=== PATIENT | female | born 1975 ===

== ENCOUNTER 2016-09-14 14:24 | Inpatient (IN) | payer OTHER ==
[2016-09-14] MEDS ORDERED: LABETALOL SYRINGE 5 MG/ML IVP ONE (15:01)
[2016-09-14 15:24] LABS: Basophils % (A) 0 %; CH 22.7; CHCM 33.6; Eosinophils # (A) 0.1 k/uL (0-0.7); Eosinophils % (A) 1 %; HCT 38.2 % (34.0-46.0); HDW 3.32; HGB 12.7 gm/dL (11.4-16.0); Luc # (Auto) 0.19; Luc % (Auto) 1; Lymphocytes # (A) 1.7 k/uL (1.0-4.8); Lymphocytes % (A) 13 %; MCH 22.5 pg (25.0-35.0); MCHC 33.1 g/dL (31.0-37.0); MCV 68.1 fL (80.0-100.0); Microcytosis Marked; Monocytes # (A) 0.7 k/uL (0-1.0); Monocytes % (A) 5 %; Neutrophils # (A) 10.2 k/uL (1.3-7.7); Neutrophils % (A) 79 %; RBC 5.61 m/uL (3.80-5.40); RDW 15.3 % (11.5-15.5); WBC 12.8 k/uL (3.8-10.6); WBC (Perox) 12.12
[2016-09-14] MEDS ORDERED: CITRIC ACID-SODIUM CITRATE 15 ML CUP PO ONE (15:32)
[2016-09-14] MEDS ORDERED: LACTATED RINGERS 1,000 ML IV ONE (15:32)
[2016-09-14 15:34] LABS: INR 0.9 (<1.1); Prothrombin Time 9.4 sec (9.0-12.0)
[2016-09-14] MEDS ORDERED: LACTATED RINGERS 1,000 ML IV SCH (15:45)
[2016-09-14] MEDS ORDERED: ceFAZolin 2 GM in SODIUM CHLORIDE 0.9% 100 ML IVPB STA (15:45)
[2016-09-14 16:03] LABS: Appearance,Urine Clear (Clear); Bilirubin,Urine Negative (Negative); Glucose,Urine (UA) Negative (Negative); Ketones,Urine Negative (Negative); Leukocyte Esterase,Urine Negative (Negative); Nitrite,Urine Negative (Negative); Protein,Urine Negative (Negative); Specific Gravity,Urine 1.002 (1.001-1.035); UA Billing (MACRO vs. MICRO) CHEM; Urobilinogen,Urine <2.0 mg/dL (<2.0)
[2016-09-14] MEDS ORDERED: KETOROLAC 30 MG/ML 1 ML VIAL ONE (16:10)
[2016-09-14] MEDS ORDERED: ceFAZolin 1,000 MG VIAL ONE (16:10)
[2016-09-14] MEDS ORDERED: NALBUPHINE 10 MG/ML AMPUL ONE (16:10)
[2016-09-14] MEDS ORDERED: LABETALOL 5 MG/ML VIAL MDV ONE (16:10)
[2016-09-14] MEDS ORDERED: MORPHINE SULFATE (PF) 0.3 MG/0.3 ML SYR ONE (16:10)
[2016-09-14 16:17] LABS: Partial Thromboplastin Time 23.1 sec (22.0-30.0)
[2016-09-14 16:43] LABS: ALT 28 U/L (9-52); AST 24 U/L (14-36); Blood Urea Nitrogen 8 mg/dL (7-17); Non-African American GFR(MDRD) >60 (>60 ml/min/1.73 sqM); Uric Acid 5.3 mg/dL (3.7-7.4)
[2016-09-14] MEDS ORDERED: diphenhydrAMINE 50 MG CAP PO PRN (16:53)
[2016-09-14] MEDS ORDERED: Acetaminophen-Codeine 300-30mg TAB PO PRN ×2 (16:53)
[2016-09-14] MEDS ORDERED: ZOLPIDEM 5 MG TAB PO PRN (16:53)
[2016-09-14] MEDS ORDERED: KETOROLAC 30 MG/ML 1 ML VIAL IVP PRN (16:53)
[2016-09-14] MEDS ORDERED: NALOXONE 0.4 MG/ML 1 ML VIAL IV PRN (16:53)
[2016-09-14] MEDS ORDERED: METOCLOPRAMIDE 5 MG/ML 2 ML VIAL IVP PRN (16:53)
[2016-09-14] MEDS ORDERED: diphenhydrAMINE 50 MG/ML 1 ML VIAL IVP PRN ×2 (16:53)
[2016-09-14] MEDS ORDERED: MEASLES-MUMPS-RUBELLA VACC/PF 12,500 UNIT/0.5 ML VIAL SQ ONE (16:53)
[2016-09-14] MEDS ORDERED: ACETAMINOPHEN TAB 325 MG TAB PO PRN (16:53)
[2016-09-14] MEDS ORDERED: ONDANSETRON 4 MG/2 ML VIAL IVP PRN (16:53)
[2016-09-14] MEDS ORDERED: diphenhydrAMINE 25 MG CAP PO PRN (16:53)
--- NOTE | 2016-09-14 16:59 | P.HPOB ---
History of Present Illness H&P Date: 09/14/16 Chief Complaint: Intrauterine at 38 weeks with grossly elevated blood pressures Patient is a 41-year-old who has recently moved to the [facility] from the [facility]. She is not seen her physician or any physician since about July. She reports at that time she had elevated blood pressure in their office and was started on Aldomet. She has not been taking the medication however. On presentation to labor and delivery her blood pressure was 180/108 and continued to be significant elevated despite giving labetalol. She is no signs or symptoms of preeclampsia however. No epigastric pain no headache no visual changes and her deep tendon reflexes are 2 out of 4. Platelets were normal other labs are still pending. If any labs appear elevated we will plan to initiate mag sulfate therapy for 24 hours for preeclampsia. However at this time without any signs or symptoms of preeclampsia I suspect this is just a very severe case of gestational hypertension. However due to the severity of the hypertension and the fact that it only minimally adjusted with labetalol a decision to move forward with a primary section has been made as her cervix is not favorable. Risks/benefits/alternatives were discussed with patient in her family in detail and all questions were answered for her pertinent prior to moving to the operating room. Past medical history is otherwise unremarkable. Past surgical history none. ALLERGIES none. Social history none. Family history none. On physical exam vital signs show grossly elevated blood pressures despite labetalol treatment. No fever chills nausea or vomiting however she is non- tachycardic. Heart is regular, lungs are clear, extremities are without pain. She does have a gravid uterus and heart tones are noted to be in the 130s to 140s and have been reactive. Assessment intrauterine at 38 weeks per patient with gestational hypertension versus preeclampsia which would be severe based on her blood pressure. Plan primary low transverse section with treatment of blood pressures following procedure and possible medical consult depending on how her blood pressures responded. Past Medical History History of Any Multi-Drug Resistant Organisms: None Reported Smoking Status: Never smoker Medications and Allergies Home Medications Medication Instructions Recorded Confirmed Type Methyldopa [Aldomet] 09/14/16 History Jui-Hcvp-Uprsv Acid 09/14/16 History [-U Capsule] Allergies Allergy/AdvReac Type Severity Reaction Status Date / Time No Known Allergies Allergy Verified 09/14/16 14:38 Exam Osteopathic Statement: *. No significant issues noted on an osteopathic structural exam other than those noted in the History and Physical/Consult. - Vital Signs Vital signs: Intake and Output 09/14/16 09/14/16 09/14/16 06:59 14:59 22:59 Other: Weight 55.338 kg Patient Weight 09/15/16 06:59 Weight 55.338 kg Results Result Diagrams: 09/14/16 15:10 09/14/16 15:10 Abnormal Lab Results - Last 24 Hours (Table) 09/14/16 09/14/16 Range/Units 15:10 15:10 WBC 12.8 H (3.8-10.6) k/uL RBC 5.61 H (3.80-5.40) m/uL MCV 68.1 L (80.0-100.0) fL MCH 22.5 L (25.0-35.0) pg Neutrophils # 10.2 H (1.3-7.7) k/uL Creatinine 0.50 L (0.52-1.04) mg/dL
--- NOTE | 2016-09-14 17:02 | P.OP ---
Date of Procedure: 09/14/16 Preoperative Diagnosis: Intrauterine at 38 weeks with severe preeclampsia versus severe gestational hypertension Postoperative Diagnosis: Same Procedure(s) Performed: Primary low transverse section from Pfannenstiel Anesthesia: spinal Surgeon: Marlon Raza Burrito Maker #1: Eulalia Benoit Estimated Blood Loss (ml): 600 IV fluids (ml): 1,000 Urine output (ml): 600 Pathology: other (Placenta) Condition: stable Disposition: floor Operative Findings: Female 's of 8 and 9 at one and 5 minutes Mauk weight was 5 lbs. 10 oz. and there was a nuchal cord 2. Description of Procedure: Patient was taken to the operating suite where a spinal anesthetic was found be adequate. She was prepped and draped in the normal sterile fashion placed in dorsal supine position with leftward tilt. Initially a Pfannenstiel skin incision was made. This incision was then carried through to underlying layer of the fashion with second knife. Fascia was then nicked in the midline and this opening was extended laterally with Rapp scissors. Superior and inferior aspect of this incision were then grasped tented up and bluntly and sharply dissected off the rectus muscles. Rectus muscles were then divided in the midline and sharp dissection through the peritoneum was made. This opening was then extended superiorly and inferiorly with good visualization of both bowel and bladder. Bladder blade was then placed vesicouterine peritoneum identified and grasped pickups. This tissue was then entered sharply with Metzenbaum scissors and this opening was extended across face of the uterus with Metzenbaum scissors. Knife was then used to incise uterus this opening was then fully entered bluntly with a hemostat and then extended bluntly. Head was then H medically delivered and nuchal cord 2 was easily reduced. Mouth nares were then bulb suctioned and anterior and posterior shoulders were easily delivered followed by the remainder the baby. Umbilical cord was then clamped cut usual fashion an nursery personnel was present to assume care. Placenta was then delivered intact and Pitocin was added to the IV. Uterus was then exteriorized cleared of clots and debris and closed in 2 layers with 0 Vicryl suture. Once excellent hemostasis was obtained 3-0 Vicryl used to reapproximate the bladder flap. Blood and debris was then suctioned posterior cul-de-sac and the uterus was reinserted into the abdomen. Peritoneal layer was then closed with 0 Vicryl suture fascial layer was closed with 0 Vicryl suture one layer of 3-0 Vicryl was placed in the deep subcuticular tissues and the skin was then closed with 3-0 Vicryl on a Reese needle. Patient tolerated the procedure very well and sponge, lap, needle counts were all correct 2.
[2016-09-14] MEDS: OXYTOCIN 30 UNITS/500 ML NS 30 UNIT in SALINE 1 500ML.BAG IV SCH ×2 (17:40→20:50)
[2016-09-14 18:43] VITALS: BMI 22.6
[2016-09-14 19:56] LABS: Glucose,Whole Blood 81 mg/dL (75-99)
[2016-09-14] MEDS: ACETAMINOPHEN IV (For NPO) 1,000 MG in EMPTY BAG 1 BAG IVPB STA ×2 (20:18→20:27)
[2016-09-14] MEDS: LACTATED RINGERS 1,000 ML IV SCH (20:44)
[2016-09-14] MEDS: SENNOSIDES-DOCUSATE SODIUM 1 EACH TAB PO SCH (21:28)
[2016-09-14] MEDS: LABETALOL 100 MG TAB PO SCH (23:51)
[2016-09-15] MEDS: OXYTOCIN 30 UNITS/500 ML NS 30 UNIT in SALINE 1 500ML.BAG IV SCH ×2 (01:30→20:48)
[2016-09-15] MEDS: LACTATED RINGERS 1,000 ML IV SCH ×2 (01:30→20:48)
[2016-09-15] MEDS ORDERED: ACETAMINOPHEN IV (For NPO) 1,000 MG in EMPTY BAG 1 BAG IVPB PRN (03:00)
[2016-09-15 05:54] LABS: Basophils % (A) 0 %; CH 22.2; CHCM 32.7; Eosinophils # (A) 0.1 k/uL (0-0.7); Eosinophils % (A) 1 %; HCT 31.9 % (34.0-46.0); HDW 3.15; HGB 10.4 gm/dL (11.4-16.0); Luc # (Auto) 0.17; Luc % (Auto) 1; Lymphocytes # (A) 1.2 k/uL (1.0-4.8); Lymphocytes % (A) 8 %; MCH 22.2 pg (25.0-35.0); MCHC 32.5 g/dL (31.0-37.0); MCV 68.4 fL (80.0-100.0); Mean Platelet Volume 7.5; Microcytosis Marked; Monocytes % (A) 7 %; Neutrophils # (A) 11.9 k/uL (1.3-7.7); Neutrophils % (A) 83 %; RBC 4.67 m/uL (3.80-5.40); RDW 15.3 % (11.5-15.5); WBC 14.3 k/uL (3.8-10.6); WBC (Perox) 14.94
[2016-09-15 07:23] LABS: Hepatitis B Surface Antibody Negative (Negative)
[2016-09-15] MEDS: LABETALOL 100 MG TAB PO SCH ×2 (08:41→21:18)
[2016-09-15] MEDS: SENNOSIDES-DOCUSATE SODIUM 1 EACH TAB PO SCH ×2 (08:41→21:18)
--- NOTE | 2016-09-15 09:05 | P.PN ---
Progress Note - Text 0700 Anesthesia POD 1. Patient is status post section under spinal anesthesia with intra-thecal preservative free morphine [300 g]. Minimal pruritus, good post-op analgesia, and no headache or other complication.
--- NOTE | 2016-09-15 09:25 | P.PNOBGPC ---
Subjective - Subjective Principal diagnosis: Postop day 1 Interval history: Overall patient is doing very well. She reports that the swelling and shakiness have almost completely dissipated from last night. Her vital signs are stable and she is afebrile. She is able to ambulate she is voiding and she is tolerating her diet. At this time she voices no complaints. Plan will be to continue current care. Patient reports: Reports appetite normal, Reports voiding normally, Reports pain well controlled, Reports ambulating normally : doing well Objective - Vital Signs Latest vital signs: Vital Signs Temp Pulse Resp BP Pulse Ox 09/15/16 08:00 98.3 F 95 16 139/92 09/15/16 06:31 98.9 F 111 H 16 141/83 97 09/15/16 03:55 145/94 09/15/16 03:50 99.4 F 108 H 14 154/105 98 09/15/16 00:00 98.4 F 104 H 16 138/95 97 09/14/16 22:50 98.9 F 118 H 18 153/95 97 09/14/16 21:15 98.4 F 116 H 97 09/14/16 20:20 99.1 F 122 H 96 09/14/16 19:35 99.6 F 125 H 18 145/75 96 09/14/16 18:57 99.0 F 122 H 20 136/83 97 09/14/16 18:27 118 H 20 134/72 97 09/14/16 17:56 122 H 18 140/72 97 09/14/16 17:40 118 H 20 132/68 98 09/14/16 17:27 122 H 16 131/74 98 09/14/16 17:12 125 H 16 141/76 98 09/14/16 16:57 98.2 F 116 H 18 130/67 98 Intake and Output 09/14/16 09/15/16 09/15/16 22:59 06:59 14:59 Intake Total 1425 500 Output Total 2700 1100 Balance -1275 -600 Intake: IV 1425 500 ACETAMINOPHEN IV (For NPO 100 100 ) 1,000 mg In Empty Bag 1 bag @ 400 mls/hr IVPB ONCE STA Rx#:[id number] Lactated Ringers 1,000 ml 400 @ 125 mls/hr IV .Q8H RYLIE Rx#:[id number] Oxytocin 30 Units/500 ml 325 Ns 30 unit In Saline 1 500ml.bag @ 120 mls/hr IV .Q4H10M [facility] Rx#: [id number] Output: Urine 2100 1100 Uretheral (Chacko) 600 Emesis 0 Estimated Blood Loss 600 Other: Voiding Method Indwelling Catheter # Bowel Movements 0 # Emeses 0 Weight 54.431 kg - Exam Lungs: bilateral: normal Chest: Normal S1, Normal S2 Extremities: Present: normal Abdomen: Present: normal appearance, soft. Absent: distention, tenderness Incision: Present: normal, dry, intact Uterus: Present: normal, firm - Labs Labs: Abnormal Lab Results - Last 24 Hours (Table) 09/14/16 09/14/16 09/15/16 Range/Units 15:10 15:10 05:31 WBC 12.8 H 14.3 H (3.8-10.6) k/uL RBC 5.61 H (3.80-5.40) m/uL Hgb 10.4 L (11.4-16.0) gm/dL Hct 31.9 L (34.0-46.0) % MCV 68.1 L 68.4 L (80.0-100.0) fL MCH 22.5 L 22.2 L (25.0-35.0) pg Neutrophils # 10.2 H 11.9 H (1.3-7.7) k/uL Creatinine 0.50 L (0.52-1.04) mg/dL
[2016-09-15] MEDS: IBUPROFEN 600 MG TAB PO PRN ×2 (15:19→23:31)
--- NOTE | 2016-09-15 19:01 | CONS ---
DATE OF CONSULTATION: REASON FOR CONSULTATION: -induced hypertension. Patient is a 41-year-old 1, status post section. Medicine was consulted because of highly elevated blood pressure. Patient was also tachycardic without any signs or symptoms of preeclampsia. Patient was started on oral labetalol 100 twice a day, with significantly improved blood pressure. Patient's blood pressure almost normalized. Patient was started on methyldopa during the month of June which is consistent transient hypertension ( ). Patient probably has gestational hypertension; does have family history of hypertension. Patient denied any headache, visual changes. Platelet count is essentially within normal limits. There are no signs or symptoms or ( ). Patient does not have any proteinuria or any elevated liver enzymes. REVIEW OF SYSTEMS: CONSTITUTIONAL: No fever, no malaise, no fatigue. HEENT: No recent visual problems or hearing problems. Denied any sore throat. CARDIOVASCULAR: No chest pain, orthopnea, PND, no palpitations, no syncope. PULMONARY: No shortness of breath, no cough, no hemoptysis. GASTROINTESTINAL: No diarrhea, no nausea, no vomiting, no abdominal pain. Normoactive bowel sounds. NEUROLOGICAL: No headaches, no weakness, no numbness. HEMATOLOGICAL: Denies any bleeding or petechiae. GENITOURINARY: Denies any burning micturition, frequency, or urgency. MUSCULOSKELETAL/RHEUMATOLOGICAL: Denies any joint pain, swelling, or any muscle pain. ENDOCRINE: Denies any polyuria or polydipsia. The rest of the 14 point review of systems is negative. PAST MEDICAL HISTORY: None. PAST SURGICAL HISTORY: None. SOCIAL HISTORY: Denied any smoking, alcohol abuse or any drug use. FAMILY HISTORY: Significant for hypertension. Home medications include methyldopa and vitamins. ALLERGIES: NO KNOWN DRUG ALLERGIES. PHYSICAL EXAMINATION: VITAL SIGNS: Temperature afebrile, pulse of 98 now, respiratory rate of 16, blood pressure 139/80. Saturating at 98% on room air. GENERAL: The patient is alert and oriented x3, not in any acute distress. Well developed, well nourished. HEENT: Pupils are round and equally reacting to light. EOMI. No scleral icterus. No conjunctival pallor. Normocephalic, atraumatic. No pharyngeal erythema. No thyromegaly. CARDIOVASCULAR: S1 and S2 present. No murmurs, rubs, or gallops. PULMONARY: Chest is clear to auscultation, no wheezing or crackles. ABDOMEN: Patient is status post section. Bowel sounds are present. MUSCULOSKELETAL: No joint swelling or deformity. EXTREMITIES: No cyanosis, clubbing, or pedal edema. NEUROLOGICAL: Gross neurological examination did not reveal any focal deficits. SKIN: No rashes. LABORATORY DATA: Patient does have minimal leukocytosis. Apart from that, liver enzymes are essentially normal limits. Patient does not have any proteinuria. Kidney function and liver function are essentially within normal limits. Normal platelet count. ASSESSMENT AND PLAN: 1. Elevated blood pressures and hypertension. The patient appears to have gestational hypertension or transient hypertension of which is expected to come down within 12 weeks. Recommend to continue with Labetalol at home and patient was counselled raiding measuring her blood pressure at home and if the patient becomes lightheaded or her blood pressure starts dropping down we may need to taper down her labetalol at that time and patient was asked to call either primary care physician or Dr. Raza at that time. Patient does not have any signs or symptoms of eclampsia at this point of time. Patient was recommended to have her primary care physician . 2. Status post section. Further management as per primary service. Patient is okay to discharge if she is ready to be discharged from [facility] on 100 b.i.d. of Labetalol. The patient was mildly tachycardic which at this point of time, improved with Labetalol itself. Thank you for letting me participate in this patient's care. UZAIR
[2016-09-16] MEDS: IBUPROFEN 600 MG TAB PO PRN ×2 (06:09→12:32)
--- NOTE | 2016-09-16 08:08 | P.DS ---
Providers Date of admission: 09/14/16 15:34 Expected date of discharge: 09/16/16 Attending physician: Marlon Raza Consults: 09/14/16 22:59 Consult Physician Routine Consulting Provider: Lyudmila Henderson Consult Reason/Comments: hypertension Do you want consulting provider notified?: Yes Primary care physician: Marlon Raza Hospital Course: Patient is doing very well postop day 2. She is requesting discharge home. Her vital signs are stable and she is afebrile. Blood pressure seems to be better on labetalol. We'll discharge her on labetalol 100 mg twice a day. She' ll follow up with me in 1 week for blood pressure check and incision check. All the questions are answered for her at this time. She is able to ambulate, void and she is tolerating her diet. At this time she voices no complaints. On physical exam vital signs again are stable. Her heart is regular, lungs are clear, abdomen is soft firm lochia is reported to be light and her incision is clean dry and intact. Assessment postop day 2. Plan discharged home follow up with me in 1 week. She is aware to return for any signs or symptoms of other blood pressures heavy bleeding or severe pain. Discharge instructions thoroughly reviewed and she provided. Patient Condition at Discharge: Good Plan - Discharge Summary New Discharge Prescriptions: Acetaminophen-Codeine 300-30mg [Tylenol #3] 1 tab PO Q4H PRN #30 tablet PRN Reason: Pain Ibuprofen [Motrin] 600 mg PO Q6HR PRN #30 tab PRN Reason: Pain Labetalol [Trandate] 100 mg PO BID #60 tablet Discharge Medication List Methyldopa [Aldomet] 09/14/16 [History] Ddz-Rtvv-Wzgxz Acid [-U Capsule] 09/14/16 [History] Acetaminophen-Codeine 300-30mg [Tylenol #3] 1 tab PO Q4H PRN #30 tablet [Rx] Ibuprofen [Motrin] 600 mg PO Q6HR PRN #30 tab 09/16/16 [Rx] Labetalol [Trandate] 100 mg PO BID #60 tablet 09/16/16 [Rx] Follow up Appointment(s)/Referral(s): Marlon Raza DO [Primary Care Provider] - 1 Week Activity/Diet/Wound Care/Special Instructions: No heavy lifting, limit stairs and driving, and pelvic rest. If any high temperatures, heavy bleeding, or severe pain call my office Discharge Disposition: HOME SELF-CARE
[2016-09-16 08:16] VITALS: RESP 16
[2016-09-16] MEDS: LABETALOL 100 MG TAB PO SCH (08:18)
[2016-09-16] MEDS: SENNOSIDES-DOCUSATE SODIUM 1 EACH TAB PO SCH ×2 (08:18→22:29)
--- NOTE | 2016-09-16 13:48 | CONS ---
DATE OF CONSULTATION: ADDENDUM: This is a continuation of my consult: Please include this dictation as a continuation of my previous consult dictation, include it in the same note: ASSESSMENT AND PLAN: 1. Elevated blood pressures and hypertension. The patient appears to have gestational hypertension or ( ) hypertension ( ) which is expected to come down within 12 weeks. Recommend to continue with Labetalol at home and patient ( ) measuring her pressure and if the patient becomes lightheaded or her blood pressure starts dropping down we may need to taper down her labetalol at that time and patient was asked to call either primary care physician or Dr. Raza at that time. Patient does not have any signs or symptoms of eclampsia at this point of time. Patient was recommended to have her primary care physician ( ) I am recommending either Dr. Dumont or ( ) for that reason. 2. Status post section. Further management as per primary service. Patient is okay to discharge if she is ready to be discharged from [facility]cology [facility] on 100 b.i.d. of Labetalol. The patient was mildly tachycardic which at this point of time, improved with Labetalol itself. Thank you for letting me participate in this patient's care.
[2016-09-16 15:48] VITALS: BP 148/91; PULSE 90; TEMP 98.1
== END 2016-09-16 20:15 | disposition home or self-care (01) | DRG 765 ==
LOC: FBPOP 14:24 → 4FBP 15:34
PROVIDERS: ADMIT Obstetrics & Gynecology; ATTEND Obstetrics & Gynecology
PROC: 3E0S3NZ Introduction of Analgesics, Hypnotics, Sedatives into Epidural Space, Percutaneous Approach (ICD-10-PCS; 2016-09-14)
PROC: 10D00Z1 Extraction of Products of Conception, Low, Open Approach (ICD-10-PCS; principal; 2016-09-14 16:15)
DX: O13.4 Gestational [pregnancy-induced] hypertension without significant proteinuria, complicating childbirth (principal); O99.12 Other diseases of the blood and blood-forming organs and certain disorders involving the immune mechanism complicating childbirth; O99.42 Diseases of the circulatory system complicating childbirth; O09.513 Supervision of elderly primigravida, third trimester; D72.829 Elevated white blood cell count, unspecified; T46.5X6A Underdosing of other antihypertensive drugs, initial encounter; O69.81X0 Labor and delivery complicated by cord around neck, without compression, not applicable or unspecified; R00.0 Tachycardia, unspecified; Z3A.38 38 weeks gestation of pregnancy; Z79.899 Other long term (current) drug therapy; Z37.0 Single live birth; Z82.49 Family history of ischemic heart disease and other diseases of the circulatory system; Z91.14 Patient's other noncompliance with medication regimen
CPT/HCPCS: 59025; 81003; 82565; 83605; 83615; 84443; 84450; 84460; 84520; 84550; 85025; 85384; 85610; 85730; 86706; 86762; 86780; 86850; 86900; 86901; 88307; 96360; 96365; 96375; 96376; 99215

== ENCOUNTER 2016-10-21 15:01 | Emergency (ER) | payer OTHER ==
[2016-10-21 15:39] VITALS: BP 131/65; PULSE 80; RESP 20; TEMP 97.8
--- NOTE | 2016-10-21 16:41 | ED ---
General Adult HPI - General Chief complaint: Recheck/Abnormal Lab/Rx Stated complaint: 09/14, INCISION OPENING Time Seen by Provider: 10/21/16 16:33 Source: patient, family Mode of arrival: ambulatory - History of Present Illness Initial comments: 41-year-old female patient presents to emergency department today for evaluation section incision. Patient was concerned that the incision was opening and she had some drainage from the left end of the incision. Patient states that she had a on 09/14/2016. Patient denies any increased pain, fever, or chills. Patient denies any abdominal pain, nausea, vomiting, constipation, diarrhea, urinary frequency, urinary urgency, hematuria , or dysuria. - Related Data Home Medications Medication Instructions Recorded Confirmed Methyldopa [Aldomet] 09/14/16 Zin-Uhyb-Bhbwd Acid 09/14/16 [-U Capsule (formulary)] Previous Rx's Medication Instructions Recorded Acetaminophen-Codeine 300-30mg 1 tab PO Q4H PRN #30 tablet 09/16/16 [Tylenol #3] Ibuprofen [Motrin] 600 mg PO Q6HR PRN #30 tab 09/16/16 Labetalol [Trandate] 100 mg PO BID #60 tablet 09/16/16 Allergies Allergy/AdvReac Type Severity Reaction Status Date / Time No Known Allergies Allergy Verified 10/21/16 15:39 Review of Systems ROS Statement: Those systems with pertinent positive or pertinent negative responses have been documented in the HPI. ROS Other: All systems not noted in ROS Statement are negative. Past Medical History Past Medical History: No Reported History History of Any Multi-Drug Resistant Organisms: None Reported Past Surgical History: No Surgical Hx Reported Past Anesthesia/Blood Transfusion Reactions: No Reported Reaction Past Psychological History: No Psychological Hx Reported Smoking Status: Never smoker Past Alcohol Use History: None Reported Past Drug Use History: None Reported General Exam General appearance: alert, in no apparent distress Head exam: Present: atraumatic, normocephalic, normal inspection Eye exam: Present: normal appearance, PERRL, EOMI. Absent: scleral icterus, conjunctival injection, periorbital swelling ENT exam: Present: normal exam, mucous membranes moist Neck exam: Present: normal inspection. Absent: tenderness, meningismus, lymphadenopathy Respiratory exam: Present: normal lung sounds bilaterally. Absent: respiratory distress, wheezes, rales, rhonchi, stridor Cardiovascular Exam: Present: regular rate, normal rhythm, normal heart sounds. Absent: systolic murmur, diastolic murmur, rubs, gallop, clicks GI/Abdominal exam: Present: soft, normal bowel sounds, other (Suprapubic horizontal incision is well approximated, Steri-Strips intact, some scabbing noted to the left end of the incision, no apparent drainage, no surrounding erythema, no swelling.). Absent: distended, tenderness, guarding, rebound, rigid Extremities exam: Present: normal inspection, full ROM, normal capillary refill. Absent: tenderness, pedal edema, joint swelling, calf tenderness Back exam: Present: normal inspection Neurological exam: Present: alert, oriented X3, CN II-XII intact Psychiatric exam: Present: normal affect, normal mood Skin exam: Present: warm, dry, intact, normal color. Absent: rash Course Vital Signs 10/21/16 15:36 Temperature 97.8 F Pulse Rate 80 Respiratory 20 Rate Blood Pressure 131/65 O2 Sat by Pulse 99 Oximetry Medical Decision Making - Medical Decision Making 41-year-old female patient presented for evaluation of her incision. Her physical exam reveals a well approximated incision, Steri-Strips intact, with no signs or symptoms of infection. Patient instructed regarding care of the incision. Instructed to follow-up with [facility] if she has any further issues or concerns. Patient also instructed to return if any new, worsening, or concerning symptoms. Patient verbalizes understanding and agrees with this plan. Disposition Clinical Impression: Encounter for wound re-check, Status post section Disposition: HOME SELF-CARE Condition: Stable Instructions: Steristrips (ED) Additional Instructions: Keep incision clean and dry. Return for any increased redness, drainage of pus , increased pain, fever, or chills. Follow-up with [facility]. Return for any worsening, new, or concerning symptoms. Referrals: Monty De La Cruz MD [Primary Care Provider] - 1-2 days Time of Disposition: 16:40
== END 2016-10-21 17:00 | disposition home or self-care (01) ==
LOC: EC 15:01
DX: Z48.01 Encounter for change or removal of surgical wound dressing (principal); Z79.899 Other long term (current) drug therapy; Z98.890 Other specified postprocedural states; Y83.8 Other surgical procedures as the cause of abnormal reaction of the patient, or of later complication, without mention of misadventure at the time of the procedure
CPT/HCPCS: 99283

== ENCOUNTER → 2017-08-24 | Outpatient (CLI) | payer BC ==
--- NOTE | 2017-08-25 09:02 | MM ---
Reason for exam: screening (asymptomatic). Baseline mammogram. History: Patient had first child at age 41. Physical Findings: Nurse did not find any significant physical abnormalities on exam. MG Screening Mammo w CAD Bilateral CC, MLO, and XCCL view(s) were taken. The breast tissue is heterogeneously dense. This may lower the sensitivity of mammography. There is a 4.8mm mass in the lower outer quadrant at middle posterior depth. There are regional calcification upper outer quadrant with multiple associated masses, the largest measuring 9mm. These results were verbally communicated with the patient and result sheet given to the patient on 08/24/17. ASSESSMENT: Incomplete: need additional imaging evaluation, BI-RAD 0 RECOMMENDATION: Special view mammogram of both breasts. If lesion persists on supplemental views, image directed ultrasound is recommended. [facility] will attempt to contact patient to return for supplemental views and ultrasound if indicated.
--- NOTE | 2017-08-25 09:04 | MM ---
Reason for exam: additional evaluation requested from abnormal screening. History: Patient had first child at age 41. Physical Findings: Breast exam preformed at baseline screening. MG Work Up Mamm w CAD BILAT Bilateral LM, CC with magnification, and LM with magnification view(s) were taken. Spot compression CC and spot compression MLO view(s) were taken of the left breast. The breast tissue is heterogeneously dense. This may lower the sensitivity of mammography. There is a 4.8mm mass in the lower outer quadrant at middle posterior depth. There are regional calcification upper outer quadrant with multiple associated masses, the largest measuring 9mm. These results were verbally communicated with the patient and result sheet given to the patient on 08/24/17. ASSESSMENT: Incomplete: need additional imaging evaluation, BI-RAD 0 RECOMMENDATION: Ultrasound of both breasts. (right upper outer quadrant, left lower outer quadrant if nothing upper outer quadrant)
--- NOTE | 2017-08-25 09:08 | USB ---
Reason for exam: additional evaluation requested from abnormal screening. History: Patient had first child at age 41. US Breast Workup Limited MAG Right breast ultrasound demonstrates a 0.7 x 0.7 x 0.5cm oval, cystic, benign lesion at 9 o'clock, a 0.7 x 0.7 x 0.7cm oval, irregular, questionable solid lesion at 9:30, biopsy, most suspicious, a 0.6 x 0.4 x 0.3cm oval, cystic lesion at 9:30 and a 0.4 x 0.4 x 0.3cm oval, hypoechoic lesion at 12 o'clock, attempt aspiration if unsuccessful biopsy. Left breast ultrasound demonstrates a 0.4 x 0.5 x 0.5cm oval, mixed lesion at 5 o'clock, possible cyst, recommend on rad path correlation. These results were verbally communicated with the patient and result sheet given to the patient on 08/24/17. ASSESSMENT: Suspicious, BI-RAD 4 RECOMMENDATION: Ultrasound core biopsy of the right breast. (2 sites) Called Dr. De La Cruz with mammographic findings and has scheduled an appointment for the patient for 08/31/17 at 10:[address] Antonio. PRELIMINARY REPORT CALLED AND FAXED TO DR. ANTONIO ON 08/25/17.
== END | disposition home or self-care (01) ==
LOC: RADMAMWWP 12:38
PROVIDERS: ATTEND Internal Medicine
DX: Z12.31 Encounter for screening mammogram for malignant neoplasm of breast (principal); R92.8 Other abnormal and inconclusive findings on diagnostic imaging of breast
CPT/HCPCS: 77066; 77067

== ENCOUNTER 2019-03-03 10:38 | Emergency (ER) | payer BC, OTHER ==
[2019-03-03 10:55] VITALS: TEMP 98.3
[2019-03-03] MEDS ORDERED: SODIUM CHLORIDE 0.9% 1,000 ML IV STA (10:58)
[2019-03-03] MEDS ORDERED: ONDANSETRON 4 MG/2 ML VIAL IVP STA (10:58)
--- NOTE | 2019-03-03 11:09 | ED ---
Recheck HPI - General Chief Complaint: Recheck/Abnormal Lab/Rx Stated Complaint: High BP Time Seen by Provider: 03/03/19 10:58 Source: patient, RN notes reviewed, old records reviewed Mode of arrival: ambulatory Limitations: language barrier - History of Present Illness Initial Comments: This is a 43-year-old female the ER for evaluation regarding blood pressure issues. Patient has elevated blood pressure headache with nausea no vomiting for a few days now. Patient was was prescribed blood pressure medication but she stopped taking a year ago as her own choice. Patient again denies chest pain or shortness of breath no travel history no sick contacts denies drug or alcohol abuse. Patient states she does have mild headache currently MD Complaint: abnormal lab (Abnormal blood pressure via home blood pressure machine) -: unknown Returns Today for: other (No specific new symptoms) Description of Abnormal Result: Elevated blood pressure Symptoms Since Prior Visit: no new symptoms Context: planned re-check (Patient concern that she is not taking medication coming to ER for evaluation) Associated Symptoms: none - Related Data Home Medications Medication Instructions Recorded Confirmed No Known Home Medications 03/03/19 03/03/19 Allergies Allergy/AdvReac Type Severity Reaction Status Date / Time No Known Allergies Allergy Verified 03/03/19 10:54 Review of Systems ROS Statement: Those systems with pertinent positive or pertinent negative responses have been documented in the HPI. ROS Other: All systems not noted in ROS Statement are negative. Past Medical History Past Medical History: Hypertension History of Any Multi-Drug Resistant Organisms: None Reported Past Surgical History: Section Past Anesthesia/Blood Transfusion Reactions: No Reported Reaction Past Psychological History: No Psychological Hx Reported Smoking Status: Never smoker Past Alcohol Use History: None Reported Past Drug Use History: None Reported General Exam Limitations: language barrier General appearance: alert, in no apparent distress Head exam: Present: atraumatic, normocephalic, normal inspection Eye exam: Present: normal appearance, PERRL, EOMI. Absent: scleral icterus, conjunctival injection, periorbital swelling ENT exam: Present: normal exam, mucous membranes moist Neck exam: Present: normal inspection. Absent: tenderness, meningismus, lymphadenopathy Respiratory exam: Present: normal lung sounds bilaterally. Absent: respiratory distress, wheezes, rales, rhonchi, stridor Cardiovascular Exam: Present: regular rate, normal rhythm, normal heart sounds. Absent: systolic murmur, diastolic murmur, rubs, gallop, clicks GI/Abdominal exam: Present: soft, normal bowel sounds. Absent: distended, tenderness, guarding, rebound, rigid Extremities exam: Present: normal inspection, full ROM, normal capillary refill. Absent: tenderness, pedal edema, joint swelling, calf tenderness Back exam: Present: normal inspection Neurological exam: Present: alert, oriented X3, CN II-XII intact Psychiatric exam: Present: normal affect, normal mood Skin exam: Present: warm, dry, intact, normal color. Absent: rash Course Vital Signs 03/03/19 03/03/19 10:50 11:34 Temperature 98.3 F Pulse Rate 80 77 Respiratory 18 16 Rate Blood Pressure 164/99 143/90 O2 Sat by Pulse 100 99 Oximetry - Reevaluation(s) Reevaluation #1: 03/03/19 11:46 Medical records reviewed Reevaluation #2: 03/03/19 11:46 Blood pressures improved here in the ER without intervention Medical Decision Making - Medical Decision Making 43 female the ER for evaluation of elevated blood pressure. Occasional headache, CT is negative labwork is normal, EKG is normal patient will be restar maranda on blood pressure medication follow-up with primary care - Lab Data Result diagrams: 03/03/19 11:16 03/03/19 11:16 Lab Results 03/03/19 03/03/19 03/03/19 Range/Units 11:16 11:16 11:16 WBC 7.0 (3.8-10.6) k/uL RBC 6.04 H (3.80-5.40) m/uL Hgb 12.6 (11.4-16.0) gm/dL Hct 40.6 (34.0-46.0) % MCV 67.2 L (80.0-100.0) fL MCH 20.8 L (25.0-35.0) pg MCHC 31.0 (31.0-37.0) g/dL RDW 17.4 H (11.5-15.5) % Plt Count 255 (150-450) k/uL Neutrophils % 65 % Lymphocytes % 25 % Monocytes % 6 % Eosinophils % 2 % Basophils % 1 % Neutrophils # 4.5 (1.3-7.7) k/uL Lymphocytes # 1.7 (1.0-4.8) k/uL Monocytes # 0.4 (0-1.0) k/uL Eosinophils # 0.1 (0-0.7) k/uL Basophils # 0.0 (0-0.2) k/uL Hypochromasia Slight Anisocytosis Slight Microcytosis Marked PT 9.9 (9.0-12.0) sec INR 0.9 (<1.2) APTT 25.7 (22.0-30.0) sec Sodium 141 (137-145) mmol/L Potassium 4.1 (3.5-5.1) mmol/L Chloride 105 (98-107) mmol/L Carbon Dioxide 26 (22-30) mmol/L Anion Gap 10 mmol/L BUN 10 (7-17) mg/dL Creatinine 0.61 (0.52-1.04) mg/dL Est GFR (CKD-EPI)AfAm >90 (>60 ml/min/1.73 sqM) Est GFR (CKD-EPI)NonAf >90 (>60 ml/min/1.73 sqM) Glucose 126 H (74-99) mg/dL Calcium 9.8 (8.4-10.2) mg/dL Phosphorus 3.4 (2.5-4.5) mg/dL Magnesium 1.8 (1.6-2.3) mg/dL Total Bilirubin 0.4 (0.2-1.3) mg/dL AST 28 (14-36) U/L ALT 47 (9-52) U/L Alkaline Phosphatase 66 (38-126) U/L Total Protein 8.1 (6.3-8.2) g/dL Albumin 4.6 (3.5-5.0) g/dL - Radiology Data Radiology results: report reviewed (CT brain is negative for acute disease), image reviewed Disposition Clinical Impression: Hypertension Disposition: HOME SELF-CARE Condition: Good Instructions (If sedation given, give patient instructions): Hypertension (ED) Is patient prescribed a controlled substance at d/c from ED?: No Referrals: None,Stated [Primary Care Provider] - 1-2 days
[2019-03-03 11:32] LABS: Anisocytosis Slight; Basophils % (A) 1 %; Eosinophils # (A) 0.1 k/uL (0-0.7); Eosinophils % (A) 2 %; HCT 40.6 % (34.0-46.0); HGB 12.6 gm/dL (11.4-16.0); Hypochromasia Slight; Lymphocytes # (A) 1.7 k/uL (1.0-4.8); Lymphocytes % (A) 25 %; MCH 20.8 pg (25.0-35.0); MCV 67.2 fL (80.0-100.0); Mean Platelet Volume 6.2; Microcytosis Marked; Monocytes # (A) 0.4 k/uL (0-1.0); Monocytes % (A) 6 %; Neutrophils # (A) 4.5 k/uL (1.3-7.7); Neutrophils % (A) 65 %; Platelet Count 255 k/uL (150-450); RBC 6.04 m/uL (3.80-5.40); RDW 17.4 % (11.5-15.5)
[2019-03-03 11:35] LABS: ALT 47 U/L (9-52); AST 28 U/L (14-36); African American GFR (CKD) >90 (>60 ml/min/1.73 sqM); Albumin 4.6 g/dL (3.5-5.0); Alkaline Phosphatase 66 U/L (38-126); Anion Gap 10 mmol/L; Blood Urea Nitrogen 10 mg/dL (7-17); Calcium 9.8 mg/dL (8.4-10.2); Carbon Dioxide 26 mmol/L (22-30); Chloride 105 mmol/L (98-107); Glucose 126 mg/dL (74-99); Magnesium 1.8 mg/dL (1.6-2.3); Non-African American GFR(CKD) >90 (>60 ml/min/1.73 sqM); Phosphorus 3.4 mg/dL (2.5-4.5); Potassium 4.1 mmol/L (3.5-5.1); Sodium 141 mmol/L (137-145); Total Bilirubin 0.4 mg/dL (0.2-1.3); Total Protein 8.1 g/dL (6.3-8.2)
[2019-03-03 11:37] LABS: INR 0.9 (<1.2); Partial Thromboplastin Time 25.7 sec (22.0-30.0); Prothrombin Time 9.9 sec (9.0-12.0)
--- NOTE | 2019-03-03 11:52 | CT ---
EXAMINATION TYPE: CT brain wo con DATE OF EXAM: 03/03/2019 COMPARISON: None INDICATION: Dizziness DLP: 1040.4 mGycm, Automated exposure control for dose reduction was used. CONTRAST: None CT of the brain is performed utilizing 3 mm thick sections through the posterior fossa and 3 mm thick sections through the remaining calvarium. Study is performed within 24 hours of arrival to the hosp [facility]. No abnormal hyperdensity is present to suggest an acute intracranial hemorrhage. No mass lesion is evident. No acute infarcts are evident. Ventricles and sulci are appropriate for the patient age. Paranasal sinuses and mastoid air cells within the [id number] are clear. IMPRESSIONS: 1. No acute intracranial process.
[2019-03-03 13:14] VITALS: BP 153/90; PULSE 76; RESP 18
== END 2019-03-03 13:13 | disposition home or self-care (01) ==
LOC: EC 10:38
DX: I10 Essential (primary) hypertension (principal)
CPT/HCPCS: 36415; 70450; 80053; 83735; 84100; 84484; 85025; 85610; 85730; 93005; 96360; 99284